=== PATIENT | female | born 1955 | race Asian ===

== ENCOUNTER 2017-04-01 19:55 | Inpatient (IN) | payer OTHER ==
[2017-04-01 20:34] LABS: ADD MAN DIFF? NO
[2017-04-01 20:35] LABS: ABNORMAL IP MESSAGE 1; BASOPHILS % 0.3 % (0.0-2.0); HEMATOCRIT 38.1 % (37.0-47.0); HEMOGLOBIN 12.4 g/dl (12.0-16.0); LYMPHOCYTES # 0.5 10^3/ul (0.8-2.9); LYMPHOCYTES % 3.2 % (15.0-51.0); MEAN CORPUSCULAR HEMOGLOBIN 28.3 pg (29.0-33.0); MEAN CORPUSCULAR HGB CONC 32.5 g/dl (32.0-37.0); MEAN PLATELET VOLUME 8.4 fl (7.4-10.4); MONOCYTE # 0.9 10^3/ul (0.3-0.9); MONOCYTES % 5.6 % (0.0-11.0); NEUTROPHIL # 13.9 10^3/ul (1.6-7.5); NEUTROPHILS % 90.5 % (39.0-77.0); PLATELET COUNT 284 10^3/UL (140-415); RED BLOOD COUNT 4.38 10^6/ul (4.20-5.40); RED CELL DISTRIBUTION WIDTH 13.8 % (11.5-14.5)
[2017-04-01 20:35] LABS: WHITE BLOOD COUNT 15.3 10^3/ul (4.8-10.8)
[2017-04-01 20:36] LABS: POSITIVE DIFF @See below
[2017-04-01 20:53] LABS: ALANINE AMINOTRANSFERASE 26 IU/L (13-69); ALBUMIN 4.4 g/dl (3.3-4.9); ALBUMIN/GLOBULIN RATIO 1.18; ALKALINE PHOSPHATASE 90 IU/L (42-121); ANION GAP 17 (8-16); ASPARTATE AMINO TRANSFERASE 31 IU/L (15-46); BILIRUBIN,INDIRECT 0.4 mg/dl (0-1.1); BILIRUBIN,TOTAL 0.4 mg/dl (0.2-1.3); BLOOD UREA NITROGEN 14 mg/dl (7-20); CALCIUM 9.4 mg/dl (8.4-10.2); CARBON DIOXIDE 28 mmol/L (21-31); CHLORIDE 102 mmol/L (97-110); CREATININE 0.53 mg/dl (0.44-1.00); GLUCOSE 137 mg/dl (70-220); SODIUM 143 mmol/L (135-144); TOTAL PROTEIN 8.1 g/dl (6.1-8.1)
[2017-04-01 20:55] LABS: ACETAMINOPHEN < 10.0 ug/ml (10.0-30.0); ETHANOL < 10.0 mg/dl; SALICYLATE < 1.0 mg/dl (5.0-30.0)
[2017-04-01 21:05] LABS: PROTIME 12.2 Sec (11.9-14.9); TROPONIN-I < 0.012 ng/ml (0.00-0.12)
[2017-04-01 21:06] LABS: PARTIAL THROMBOPLASTIN TIME 27.2 Sec (25.0-35.0)
[2017-04-01 21:39] LABS: ADD UMIC YES; UR ASCORBIC ACID 40 mg/dL (NEGATIVE); UR BACTERIA MANY /HPF (NONE SEEN); UR BILIRUBIN (Dip) NEGATIVE (NEGATIVE); UR BLOOD (Dip) NEGATIVE (NEGATIVE); UR CLARITY CLOUDY (CLEAR); UR COLOR YELLOW (YELLOW); UR GLUCOSE (Dip) NEGATIVE (NEGATIVE); UR KETONES (Dip) TRACE mg/dL (NEGATIVE); UR LEUKOCYTE ESTERASE (Dip) TRACE Leu/ul (NEGATIVE); UR MUCUS MODERATE /HPF (NONE SEEN); UR NITRITE (Dip) POSITIVE (NEGATIVE); UR RBC 9 /HPF (0-5); UR SPECIFIC GRAVITY (Dip) 1.016 (1.003-1.030); UR TOTAL PROTEIN (Dip) NEGATIVE (NEGATIVE); UR UROBILINOGEN (Dip) NEGATIVE (NEGATIVE); UR WBC 10 /HPF (0-5)
[2017-04-01 21:52] LABS: AMPHETAMINE/METHAMPHETAMINE Negative (NEGATIVE); BARBITURATES Negative (NEGATIVE); BENZODIAZEPINES Negative (NEGATIVE); CANNABINOIDS Negative (NEGATIVE); COCAINE Negative (NEGATIVE); OPIATES Negative (NEGATIVE)
[2017-04-01 22:23] LABS: FREE THYROXINE INDEX (Calc) 3.16 ug/ml (0.65-3.89)
[2017-04-01 22:28] LABS: T3 UPTAKE 38.1 % (23.5-40.5); T4 (THYROXINE) 8.3 ug/dl (5.5-11.0)
[2017-04-01] MEDS: CEFEPIME 1GM/50 ML (PMX) 50 ML IVPB (22:41)
[2017-04-02] MEDS ORDERED: HYDROCODONE/APAP (5/325) TAB PO (04:00)
[2017-04-02] MEDS ORDERED: NACL 0.9% 3 ML SYG IV (04:00)
[2017-04-02] MEDS ORDERED: ONDANSETRON 4 MG INJ IV (04:00)
[2017-04-02] MEDS: SOD CHLORIDE 0.9% 1,000 ML IV (04:30)
[2017-04-02] MEDS: FAMOTIDINE 20 MG INJ IV (09:48)
[2017-04-02] MEDS: ACETAMINOPHEN 325 MG TAB PO (09:49)
[2017-04-02] MEDS: ONDANSETRON 4 MG INJ IV (22:37)
[2017-04-02] MEDS: CEFEPIME 1GM/50 ML (PMX) 50 ML IVPB (22:38)
[2017-04-03 00:12] LABS: ADD MAN DIFF? NO
[2017-04-03 00:15] LABS: BASOPHILS % 0.6 % (0.0-2.0); EOSINOPHILS % 0.1 % (0.0-7.0); HEMATOCRIT 34.8 % (37.0-47.0); HEMOGLOBIN 11.5 g/dl (12.0-16.0); LYMPHOCYTES # 0.9 10^3/ul (0.8-2.9); LYMPHOCYTES % 12.6 % (15.0-51.0); MEAN CORPUSCULAR HEMOGLOBIN 28.1 pg (29.0-33.0); MEAN CORPUSCULAR VOLUME 85.1 fl (82.0-101.0); MEAN PLATELET VOLUME 8.4 fl (7.4-10.4); MONOCYTE # 0.5 10^3/ul (0.3-0.9); MONOCYTES % 7.3 % (0.0-11.0); NEUTROPHIL # 5.4 10^3/ul (1.6-7.5); PLATELET COUNT 259 10^3/UL (140-415); RED BLOOD COUNT 4.09 10^6/ul (4.20-5.40); RED CELL DISTRIBUTION WIDTH 13.7 % (11.5-14.5)
[2017-04-03 00:15] LABS: WHITE BLOOD COUNT 6.9 10^3/ul (4.8-10.8)
[2017-04-03] MEDS: SOD CHLORIDE 0.9% 1,000 ML IV ×2 (01:01→20:36)
[2017-04-03] MEDS: PANTOPRAZOLE 40 MG INJ IV (05:21)
[2017-04-03] MEDS: ONDANSETRON 4 MG INJ IV (05:21)
[2017-04-03 06:25] LABS: ADD MAN DIFF? NO
[2017-04-03 06:31] LABS: WHITE BLOOD COUNT 7.4 10^3/ul (4.8-10.8)
[2017-04-03 06:31] LABS: BASOPHIL # 0.1 10^3/ul (0.0-0.1); BASOPHILS % 0.7 % (0.0-2.0); EOSINOPHILS % 0.1 % (0.0-7.0); HEMATOCRIT 34.7 % (37.0-47.0); HEMOGLOBIN 11.5 g/dl (12.0-16.0); LYMPHOCYTES # 1.3 10^3/ul (0.8-2.9); LYMPHOCYTES % 17.9 % (15.0-51.0); MEAN CORPUSCULAR HEMOGLOBIN 28.3 pg (29.0-33.0); MEAN CORPUSCULAR HGB CONC 33.1 g/dl (32.0-37.0); MEAN CORPUSCULAR VOLUME 85.3 fl (82.0-101.0); MEAN PLATELET VOLUME 8.9 fl (7.4-10.4); MONOCYTE # 0.6 10^3/ul (0.3-0.9); MONOCYTES % 8.3 % (0.0-11.0); NEUTROPHIL # 5.4 10^3/ul (1.6-7.5); NEUTROPHILS % 72.7 % (39.0-77.0); PLATELET COUNT 277 10^3/UL (140-415); RED BLOOD COUNT 4.07 10^6/ul (4.20-5.40); RED CELL DISTRIBUTION WIDTH 13.5 % (11.5-14.5)
[2017-04-03 06:59] LABS: ALANINE AMINOTRANSFERASE 30 IU/L (13-69); ALBUMIN 3.9 g/dl (3.3-4.9); ALBUMIN/GLOBULIN RATIO 1.14; ALKALINE PHOSPHATASE 84 IU/L (42-121); ANION GAP 18 (8-16); ASPARTATE AMINO TRANSFERASE 34 IU/L (15-46); BILIRUBIN,INDIRECT 0.5 mg/dl (0-1.1); BILIRUBIN,TOTAL 0.5 mg/dl (0.2-1.3); BLOOD UREA NITROGEN 16 mg/dl (7-20); CALCIUM 9.1 mg/dl (8.4-10.2); CARBON DIOXIDE 25 mmol/L (21-31); CHLORIDE 103 mmol/L (97-110); CREATININE 0.57 mg/dl (0.44-1.00); GLUCOSE 89 mg/dl (70-220); POTASSIUM 3.7 mmol/L (3.5-5.1); SODIUM 142 mmol/L (135-144); TOTAL PROTEIN 7.3 g/dl (6.1-8.1)
[2017-04-03] MEDS: FAMOTIDINE 20 MG INJ IV (08:42)
[2017-04-03] MEDS: LEVETIRACETAM 500 MG TAB PO (08:42)
[2017-04-03] MEDS ORDERED: VITAMIN A & D 5 GM OINT PACKET TOP (10:15)
[2017-04-03] MEDS: LEVETIRACETAM 500 MG (PMX) 100 ML IVPB (16:52)
[2017-04-03] MEDS: CEFEPIME 1GM/50 ML (PMX) 50 ML IVPB (23:06)
[2017-04-04] MEDS: LEVETIRACETAM 500 MG (PMX) 100 ML IVPB ×3 (00:42→21:00)
[2017-04-04] MEDS: PANTOPRAZOLE 40 MG INJ IV (05:54)
[2017-04-04] MEDS: FAMOTIDINE 20 MG INJ IV (08:08)
[2017-04-04] MEDS ORDERED: VITAMIN A & D 5 GM OINT PACKET TOP (10:34)
[2017-04-04] MEDS: SOD CHLORIDE 0.9% 1,000 ML IV ×2 (16:00→17:52)
[2017-04-04] MEDS ORDERED: DEXTROSE 5%-0.45% NACL 500 ML IV (18:30)
[2017-04-04] MEDS ORDERED: DEXTROSE 5%-0.45% NACL 1,000 ML IV (18:58)
[2017-04-05] MEDS: CEFEPIME 1GM/50 ML (PMX) 50 ML IVPB ×2 (01:11→23:28)
[2017-04-05] MEDS: PANTOPRAZOLE 40 MG INJ IV (05:35)
[2017-04-05] MEDS: LEVETIRACETAM 500 MG (PMX) 100 ML IVPB ×2 (08:48→20:59)
[2017-04-05] MEDS: FAMOTIDINE 20 MG INJ IV (08:49)
[2017-04-06] MEDS: PANTOPRAZOLE 40 MG INJ IV (05:13)
[2017-04-06 05:57] LABS: ANION GAP 12 (8-16); BLOOD UREA NITROGEN 10 mg/dl (7-20); CARBON DIOXIDE 30 mmol/L (21-31); CHLORIDE 101 mmol/L (97-110); CREATININE 0.56 mg/dl (0.44-1.00); GLUCOSE 89 mg/dl (70-220); MAGNESIUM 2.1 mg/dl (1.7-2.5); PHOSPHORUS 4.1 mg/dl (2.5-4.9); POTASSIUM 3.2 mmol/L (3.5-5.1); SODIUM 140 mmol/L (135-144); TRIGLYCERIDES 91 mg/dl (0-149)
[2017-04-06 07:01] LABS: PREALBUMIN 18.6 mg/dl (17.6-36.0)
[2017-04-06] MEDS: FAMOTIDINE 20 MG INJ IV (08:38)
[2017-04-06] MEDS: LEVETIRACETAM 500 MG (PMX) 100 ML IVPB ×2 (08:38→20:35)
[2017-04-06] MEDS: POTASSIUM CHLORIDE 100 ML IVPB ×2 (12:31→15:15)
[2017-04-06] MEDS: VITAMIN A & D 5 GM OINT PACKET TOP (12:31)
[2017-04-06] MEDS ORDERED: FAT EMULSION 20% 250 ML IV (16:00)
[2017-04-06] MEDS: DEXTROSE 5%-0.45% NACL 1,000 ML IV (16:23)
[2017-04-06] MEDS: TPN 1,000 ML IV (17:56)
[2017-04-06] MEDS: FAT EMULSION 20% 250 ML IV (18:35)
[2017-04-06] MEDS: CEFEPIME 1GM/50 ML (PMX) 50 ML IVPB (23:48)
[2017-04-06] MEDS: ACCU-CHEK XX (23:54)
[2017-04-07] MEDS: ACCU-CHEK XX ×3 (05:26→18:00)
[2017-04-07] MEDS: PANTOPRAZOLE 40 MG INJ IV (05:27)
[2017-04-07] MEDS: TPN 1,000 ML IV ×2 (05:46→13:28)
[2017-04-07 07:31] LABS: ANION GAP 11 (8-16); BLOOD UREA NITROGEN 15 mg/dl (7-20); CALCIUM 8.9 mg/dl (8.4-10.2); CARBON DIOXIDE 28 mmol/L (21-31); CHLORIDE 101 mmol/L (97-110); CREATININE 0.41 mg/dl (0.44-1.00); GLUCOSE 189 mg/dl (70-220); MAGNESIUM 2.1 mg/dl (1.7-2.5); PHOSPHORUS 3.2 mg/dl (2.5-4.9); POTASSIUM 3.9 mmol/L (3.5-5.1); SODIUM 136 mmol/L (135-144)
[2017-04-07] MEDS: LEVETIRACETAM 500 MG (PMX) 100 ML IVPB ×2 (09:20→21:02)
[2017-04-07] MEDS: FAMOTIDINE 20 MG INJ IV (09:20)
[2017-04-07] MEDS: FAT EMULSION 20% 250 ML IV (16:00)
[2017-04-07] MEDS: CEFTRIAXONE 1 GM/NS 50 ML IVPB (23:32)
[2017-04-08] MEDS: ACCU-CHEK XX ×2 (00:17→08:54)
[2017-04-08] MEDS: TPN 1,000 ML IV (04:25)
[2017-04-08] MEDS: PANTOPRAZOLE 40 MG INJ IV (05:28)
[2017-04-08 06:03] LABS: ADD MAN DIFF? NO
[2017-04-08 06:15] LABS: WHITE BLOOD COUNT 10.4 10^3/ul (4.8-10.8)
[2017-04-08 06:15] LABS: BASOPHILS % 0.3 % (0.0-2.0); EOSINOPHILS # 0.2 10^3/ul (0.0-0.5); EOSINOPHILS % 1.8 % (0.0-7.0); HEMATOCRIT 35.2 % (37.0-47.0); HEMOGLOBIN 11.6 g/dl (12.0-16.0); LYMPHOCYTES % 9.9 % (15.0-51.0); MEAN CORPUSCULAR VOLUME 84.8 fl (82.0-101.0); MEAN PLATELET VOLUME 9.3 fl (7.4-10.4); MONOCYTE # 0.8 10^3/ul (0.3-0.9); NEUTROPHIL # 8.3 10^3/ul (1.6-7.5); NEUTROPHILS % 79.6 % (39.0-77.0); PLATELET COUNT 212 10^3/UL (140-415); RED BLOOD COUNT 4.15 10^6/ul (4.20-5.40); RED CELL DISTRIBUTION WIDTH 13.2 % (11.5-14.5)
[2017-04-08 06:36] LABS: PHOSPHORUS 3.2 mg/dl (2.5-4.9)
[2017-04-08 06:36] LABS: MAGNESIUM 2.3 mg/dl (1.7-2.5)
[2017-04-08 06:47] LABS: BLOOD UREA NITROGEN 14 mg/dl (7-20); CALCIUM 8.6 mg/dl (8.4-10.2); CARBON DIOXIDE 31 mmol/L (21-31); CHLORIDE 102 mmol/L (97-110); CREATININE 0.44 mg/dl (0.44-1.00); GLUCOSE 152 mg/dl (70-220); SODIUM 137 mmol/L (135-144)
[2017-04-08 07:42] LABS: ANION GAP 8 (8-16)
[2017-04-08] MEDS: FAMOTIDINE 20 MG INJ IV (08:53)
[2017-04-08] MEDS: LEVETIRACETAM 500 MG (PMX) 100 ML IVPB ×2 (08:53→20:22)
[2017-04-08] MEDS: DEXTROSE 5%-0.45% NACL 1,000 ML IV (16:36)
[2017-04-08] MEDS: CEFTRIAXONE 1 GM/NS 50 ML IVPB (22:47)
[2017-04-09] MEDS: PANTOPRAZOLE 40 MG INJ IV (05:40)
[2017-04-09] MEDS: FAMOTIDINE 20 MG INJ IV (08:19)
[2017-04-09] MEDS: LEVETIRACETAM 500 MG (PMX) 100 ML IVPB ×2 (08:19→20:33)
[2017-04-09] MEDS: DEXTROSE 5%-0.45% NACL 1,000 ML IV (12:30)
[2017-04-10] MEDS: PANTOPRAZOLE 40 MG INJ IV (05:12)
[2017-04-10] MEDS: FAMOTIDINE 20 MG INJ IV (09:14)
[2017-04-10] MEDS: LEVETIRACETAM 500 MG (PMX) 100 ML IVPB (09:14)
[2017-04-10] MEDS: DEXTROSE 5%-0.45% NACL 1,000 ML IV (09:14)
[2017-04-10] MEDS: LEVETIRACETAM 500 MG TAB PO (20:42)
[2017-04-11] MEDS: PANTOPRAZOLE 40 MG INJ IV (05:25)
[2017-04-11] MEDS: LEVETIRACETAM 500 MG TAB PO ×2 (08:57→20:30)
[2017-04-11] MEDS: FAMOTIDINE 20 MG INJ IV (08:58)
[2017-04-11] MEDS ORDERED: GLUCOSE GEL 15 GRAM TUBE BUCCAL (13:30)
[2017-04-11] MEDS ORDERED: GLUCOSE GEL 15 GRAM TUBE PO ×2 (13:30)
[2017-04-11] MEDS ORDERED: DEXTROSE 50% 50 ML SYRINGE IV ×2 (13:30)
[2017-04-11] MEDS ORDERED: GLUCAGON 1 MG INJ IM (13:30)
[2017-04-11 15:00] LABS: HEMOGLOBIN A1C 5.3 % (0-5.9)
[2017-04-11] MEDS: ACCU-CHEK XX ×2 (17:36→21:00)
[2017-04-11] MEDS: INSULIN ASPART [NOVOLOG] 3 ML PEN SC ×2 (17:36→20:31)
[2017-04-12] MEDS: PANTOPRAZOLE 40 MG INJ IV (06:05)
[2017-04-12] MEDS: ACCU-CHEK XX ×4 (07:56→21:09)
[2017-04-12] MEDS: INSULIN ASPART [NOVOLOG] 3 ML PEN SC ×4 (07:56→21:00)
[2017-04-12] MEDS: LEVETIRACETAM 500 MG TAB PO ×2 (08:00→21:01)
[2017-04-12] MEDS: FAMOTIDINE 20 MG INJ IV (08:00)
[2017-04-12] MEDS: INSULIN GLARGINE [LANtus] 3 ML PEN SC (08:03)
[2017-04-13] MEDS: PANTOPRAZOLE (EC) 40 MG TAB PO (06:13)
[2017-04-13 06:43] LABS: PREALBUMIN 17.7 mg/dl (17.6-36.0)
[2017-04-13] MEDS: ACCU-CHEK XX ×4 (08:00→20:55)
[2017-04-13] MEDS: INSULIN ASPART [NOVOLOG] 3 ML PEN SC ×4 (08:15→20:55)
[2017-04-13] MEDS: LEVETIRACETAM 500 MG TAB PO ×2 (08:32→20:55)
[2017-04-13] MEDS: INSULIN GLARGINE [LANtus] 3 ML PEN SC (08:56)
[2017-04-13] MEDS: BISACODYL (EC) 5 MG TAB PO (18:57)
[2017-04-13] MEDS: DOCUSATE SODIUM 100 MG CAP PO (20:55)
[2017-04-14] MEDS: PANTOPRAZOLE (EC) 40 MG TAB PO (05:27)
[2017-04-14] MEDS: ACCU-CHEK XX (08:00)
[2017-04-14] MEDS: INSULIN ASPART [NOVOLOG] 3 ML PEN SC (08:06)
[2017-04-14] MEDS: LEVETIRACETAM 500 MG TAB PO ×2 (08:07→21:19)
[2017-04-14] MEDS: DOCUSATE SODIUM 100 MG CAP PO ×2 (08:07→21:20)
[2017-04-14] MEDS: INSULIN GLARGINE [LANtus] 3 ML PEN SC (08:26)
[2017-04-14 10:46] LABS: ADD MAN DIFF? NO
[2017-04-14 10:50] LABS: BASOPHILS % 0.6 % (0.0-2.0); EOSINOPHILS # 0.2 10^3/ul (0.0-0.5); EOSINOPHILS % 3.8 % (0.0-7.0); HEMOGLOBIN 11.7 g/dl (12.0-16.0); LYMPHOCYTES # 1.1 10^3/ul (0.8-2.9); LYMPHOCYTES % 17.7 % (15.0-51.0); MEAN CORPUSCULAR HGB CONC 32.5 g/dl (32.0-37.0); MEAN CORPUSCULAR VOLUME 86.1 fl (82.0-101.0); MEAN PLATELET VOLUME 8.6 fl (7.4-10.4); MONOCYTE # 0.7 10^3/ul (0.3-0.9); MONOCYTES % 11.2 % (0.0-11.0); NEUTROPHIL # 4.2 10^3/ul (1.6-7.5); NEUTROPHILS % 66.2 % (39.0-77.0); PLATELET COUNT 263 10^3/UL (140-415); RED BLOOD COUNT 4.18 10^6/ul (4.20-5.40); RED CELL DISTRIBUTION WIDTH 13.6 % (11.5-14.5)
[2017-04-14 10:50] LABS: WHITE BLOOD COUNT 6.3 10^3/ul (4.8-10.8)
[2017-04-14 11:11] LABS: ANION GAP 14 (8-16); BLOOD UREA NITROGEN 14 mg/dl (7-20); CALCIUM 8.9 mg/dl (8.4-10.2); CARBON DIOXIDE 33 mmol/L (21-31); CHLORIDE 102 mmol/L (97-110); CREATININE 0.46 mg/dl (0.44-1.00); GLUCOSE 96 mg/dl (70-220); POTASSIUM 3.9 mmol/L (3.5-5.1); SODIUM 145 mmol/L (135-144)
[2017-04-15] MEDS: PANTOPRAZOLE (EC) 40 MG TAB PO (05:59)
[2017-04-15] MEDS: DOCUSATE SODIUM 100 MG CAP PO (09:20)
[2017-04-15] MEDS: LEVETIRACETAM 500 MG TAB PO (09:20)
== END 2017-04-15 15:30 | disposition short-term general hospital (02) | DRG 82 ==
LOC: MS2 04-03 00:40 → E/R 19:55 → ICU 23:21
DX: S06.5X9A Traumatic subdural hemorrhage with loss of consciousness of unspecified duration, initial encounter (principal); E43 Unspecified severe protein-calorie malnutrition; G97.82 Other postprocedural complications and disorders of nervous system; N39.0 Urinary tract infection, site not specified; Z68.1 Body mass index [BMI] 19.9 or less, adult; G96.0 Cerebrospinal fluid leak; G96.19 Other disorders of meninges, not elsewhere classified; W19.XXXA Unspecified fall, initial encounter; Y83.8 Other surgical procedures as the cause of abnormal reaction of the patient, or of later complication, without mention of misadventure at the time of the procedure; B96.20 Unspecified Escherichia coli [E. coli] as the cause of diseases classified elsewhere; G93.2 Benign intracranial hypertension; K59.00 Constipation, unspecified; R63.6 Underweight; Z87.19 Personal history of other diseases of the digestive system; Z87.11 Personal history of peptic ulcer disease
CPT/HCPCS: 70450; 70486; 70553; 71045; 72125; 72158; 72170; 80048; 80053; 80306; 80307; 81001; 82962; 83036; 83735; 84100; 84134; 84436; 84478; 84479; 84484; 85025; 85610; 85730; 87081; 87086; 92526; 92610; 93005; 95819